=== PATIENT | male | born 1950 | race Two or more races ===

== ENCOUNTER 2016-11-02 05:53 | Day surgery (SDC) | payer OTHER ==
[~2016-11-02 05:53] MED LIST: IV START KIT ONE; LACTATED RINGERS 1,000 ML ONE
[2016-11-02] MEDS ORDERED: LACTATED RINGERS 1,000 ML IV SCH (07:00)
[2016-11-02] MEDS ORDERED: PROPOFOL 40 ML IV ONE (07:11)
[2016-11-02] MEDS ORDERED: LIDOCAINE 2% (PRES FREE) 5 ML VIAL ONE (07:11)
== END 2016-11-02 08:15 | disposition home or self-care (01) ==
LOC: SDC 05:53
PROVIDERS: ATTEND Family Medicine
PROC: 0DJD8ZZ Inspection of Lower Intestinal Tract, Via Natural or Artificial Opening Endoscopic (ICD-10-PCS; principal; 2016-11-02)
DX: Z12.11 Encounter for screening for malignant neoplasm of colon (principal); K57.30 Diverticulosis of large intestine without perforation or abscess without bleeding; E11.9 Type 2 diabetes mellitus without complications; I10 Essential (primary) hypertension; L30.8 Other specified dermatitis; L43.9 Lichen planus, unspecified; N52.8 Other male erectile dysfunction; G47.39 Other sleep apnea; I25.9 Chronic ischemic heart disease, unspecified; E29.1 Testicular hypofunction; Z80.3 Family history of malignant neoplasm of breast; Z80.0 Family history of malignant neoplasm of digestive organs; Z80.8 Family history of malignant neoplasm of other organs or systems; Z79.82 Long term (current) use of aspirin; Z79.84 Long term (current) use of oral hypoglycemic drugs
CPT/HCPCS: 45378; J7120